=== PATIENT | female | born 1940 | race Caucasian/White ===

== ENCOUNTER → 2018-12-16 | Outpatient (CLI) | payer MEDICARE ==
--- NOTE | 2018-12-16 16:18 | Diagnostic Imaging Report ---
History: Dizziness, headache Comparison studies: None Technique: Sagittal T2; axial DWI, FLAIR, MPGR, T1, Coronal FLAIR. Intravenous contrast: None Findings: Scalp: Normal in signal . No masses . Bone marrow: Normal in signal intensity. Extra-axial: No masses, no fluid collections. Brain sulci: Moderately prominent. Ventricles: Moderately prominent . No hydrocephalus . Parenchyma: Scattered small T-2/flair hyperintensities of the periventricular and deep white matter No masses, hemorrhage, acute or chronic vascular insults. Suprasellar region: No abnormalities. Craniocervical junction: No abnormalities. Patent foramen magnum. No Chiari one malformation. Vessels: Normal flow-voids in the arteries and sinuses. IMPRESSION: 1. No acute abnormalities. 2. Mild chronic microvascular ischemic changes of the white matter. 3. Moderate diffuse volume loss Signed by: DR Justice Huang M.D. on 12/16/2018 4:15 PM
== END ==
LOC: MRI 13:00
PROVIDERS: ATTEND Family Medicine
DX: G44.1 Vascular headache, not elsewhere classified (principal); R27.0 Ataxia, unspecified
CPT/HCPCS: 70551

== ENCOUNTER 2020-05-26 12:20 | Observation (INO) | payer MEDICARE ==
[~2020-05-26] VITALS: Ht 170.2 cm; Wt 72.6 kg
[2020-05-26 13:01] LABS: BASOPHILS % 0.4 % (0.0-1.0); EOSINOPHILS # (AUTO) 0.2 (0.0-0.4); EOSINOPHILS % 2.9 % (0.0-6.0); HEMATOCRIT 46.1 % (34.2-44.1); HEMOGLOBIN 14.9 g/dL (12.0-16.0); LYMPHOCYTES # (AUTO) 1.8 (1.0-3.2); LYMPHOCYTES % 25.8 % (18.0-39.1); MEAN CORPUSCULAR HEMOGLOBIN 27.5 pg (28-32); MEAN CORPUSCULAR HGB CONC 32.3 g/dL (31-35); MEAN CORPUSCULAR VOLUME 85.2 fL (81-99); MONOCYTES # (AUTO) 0.4 (0.2-0.8); MONOCYTES % 5.2 % (4.4-11.3); NEUTROPHILS # (AUTO) 4.6 (2.1-6.9); NEUTROPHILS % 65.3 % (38.7-80.0); PLATELET COUNT 228 x10e3/uL (140-360); RED BLOOD COUNT 5.41 x10e6/uL (3.6-5.1)
[2020-05-26 13:14] LABS: INR 0.9; PROTHROMBIN TIME 12.6 seconds (11.9-14.5)
--- NOTE | 2020-05-26 13:17 | Emergency Department Note ---
History of Present Illnes History of Present Illness Chief Complaint: Hypertension History of Present Illness This is a 79 year old female arrives to the ED with complaints of high blood pressure. Patient states she was sent to the ER by her primary care doctor for high blood pressure and EKG changes. Patient admits to a headache and chest pain. Patient with to being noncompliant with her hypertensive medications. . Chief Complaint Comment Patient sent to the ER from doctor's office for evaluation of high blood pressure. Patient reports that she has not had a visit with her PCP in two years and finally had a visit today where her blood pressure was 205/110. Patient also admits to being forgetful with her medications and states that she went on a 3 day vacation and hasn't taken her blood pressure medications including this morning. Patient also mentioned chest pain intermittantly over the last few days but denies chest pain now. Historian: Patient Arrival Mode: Car Onset (how long ago): second(s) Severity: moderate Onset quality: unable to specify Duration (how long): week(s) Timing of current episode: constant Progression: unchanged Chronicity: new Relieving factors: none Associated symptoms: Reports chest pain, Reports headaches Treatments prior to arrival: none Past Medical/Family History Physician Review I have reviewed the patient's past medical and family history. Any updates have been documented here. Past Medical History Recent Fever: No Clinical Suspicion of Infectio: No New/Unexplained Change in Ment: No Past Medical History: Hypertension, Cancer, Depression Other Medical History: Chronic Fatigue Syndrome Fibromyalgia Past Surgical History: Appendectomy, Hysterectomy, Knee Replacement, Back Surgery Other Surgery: Gastric Tumor Social History Smoking Cessation: Never Smoker Review of Systems Review of Systems Constitutional: Reports as per HPI, Reports weakness EENTM: Reports no symptoms Cardiovascular: Reports as per HPI, Reports chest pain Respiratory: Reports no symptoms Gastrointestinal: Reports no symptoms Genitourinary: Reports no symptoms Musculoskeletal: Reports no symptoms Integumentary: Reports no symptoms Neurological: Reports no symptoms Psychological: Reports no symptoms Endocrine: Reports no symptoms Hematological/Lymphatic: Reports no symptoms Physical Exam Related Data Allergies: Coded Allergies: codeine (Verified Allergy, Unknown, 08/29/09) Triage Vital Signs Vital Signs Date Time Temp Pulse Resp B/P (MAP) Pulse Ox O2 Delivery O2 Flow Rate FiO2 05/26/20 12:25 98.3 77 16 241/105 100 Room Air Vital signs reviewed: Yes Physical Exam CONSTITUTIONAL Constitutional: Present well-developed, Present well-nourished HENT HENT: Present normocephalic, Present atraumatic, Present oropharynx clear/moist, Present nose normal HENT L/R: Present left ext ear normal, Present right ext ear normal EYES Eyes: Reports PERRL, Reports conjunctivae normal NECK Neck: Present ROM normal PULMONARY Pulmonary: Present effort normal, Present breath sounds normal CARDIOVASCULAR Cardiovascular: Present regular rhythm, Present heart sounds normal, Present capillary refill normal, Present normal rate GASTROINTESTINAL Abdominal: Present soft, Present nontender, Present bowel sounds normal GENITOURINARY Genitourinary: Present exam deferred SKIN Skin: Present warm, Present dry MUSCULOSKELETAL Musculoskeletal: Present ROM normal NEUROLOGICAL Neurological: Present alert, Present oriented x 3, Present no gross motor or sensory deficits PSYCHOLOGICAL Psychological: Present mood/affect normal, Present judgement normal Results Laboratory Laboratory Laboratory Tests Test 05/26/20 12:35 Lab results reviewed: Yes Imaging Imaging results reviewed: Yes Procedures 12 Lead ECG Interpretation ECG Interpretation : ECG: ECG 1 Counter Intelligence: Interpreted by ED physician Prior ECG tracings: reviewed Rhythm: sinus rhythm Rate: normal QRS axis: normal T wave elevation: II, III, aVF, V4, V5, V6 Clinical Impression: abnormal ECG Critical Care Time Total Critical Care Time (min): 35 Critical care time exclusive o: separately billable procedures Critcal care necessary due to: cardiac failure Assessment & Plan Medical Decision Making MDM 79-year-old female arrived to the ED with complaints of headache and chest pain. Patient Markert hypertension secondary to medication noncompliance. Patient required emergent intervention with stat CT scan of the brain and medications for blood pressure control. Patient admitted for further workup and management. Given the critical condition in which the patient arrived, the patient was immediately assessed by myself and the nurse, and cardiac monitoring initiated due to the potential for rapid decompensation of the patient's clinical condition. During the course of the patient?s stay, I spent a considerable amount of time at the bedside performing serial re-evaluations of the patient's hemodynamic and clinical status because of the recognized potential threat to life or limb in this condition. I then had a chance to review not only all of the available current laboratory and radiographic studies obtained today, but I also reviewed old records available to me at the time. Additionally, any ancillary information available including edge in[facility] records were reviewed. Seq uential vital signs were obtained. Critical Care time of 35 minutes was performed exclusive of billable procedures Assessment & Plan Final Impression: (1) Hypertensive urgency Depart Disposition: HOME, SELF-CARE Last Vital Signs Date Time Temp Pulse Resp B/P (MAP) Pulse Ox O2 Delivery O2 Flow Rate FiO2 05/26/20 12:25 98.3 77 16 241/105 100 Room Air Home Meds Reported Medications Duloxetine HCl (Duloxetine HCl) 30 Mg Capsule.dr, 30 MG PO DAILY 05/26/20 Clonazepam (CLONAZEPAM) 1 Mg Tablet, 1 MG PO DAILY 05/26/20 Fluoxetine Hcl (FLUOXETINE HCL) 20 Mg Capsule, 20 MG PO DAILY 05/26/20 Amlodipine Besylate (AMLODIPINE BESYLATE) 10 Mg Tablet, 10 MG PO DAILY 05/26/20 Clonidine Hcl (CLONIDINE HCL) 0.1 Mg Tablet, 1 TAB PO PRN PRN for ELEVATED BLOOD PRESSURE 05/26/20 RAUL RODRIGUEZ DO May 26, 2020 13:17
[2020-05-26 13:19] LABS: ALANINE AMINOTRANSFERASE 22 IU/L (0-55); ALBUMIN 4.4 g/dL (3.5-5.0); ALBUMIN/GLOBULIN RATIO 1.3 (0.8-2.0); ALKALINE PHOSPHATASE 93 IU/L (40-150); ANION GAP 14.9 mmol/L (8-16); BLOOD UREA NITROGEN 12 mg/dL (7-26); BUN/CREATININE RATIO 16 (6-25); CALCIUM 9.7 mg/dL (8.4-10.2); CARBON DIOXIDE 25 mmol/L (22-29); CHLORIDE 104 mmol/L (98-107); CREATININE, SERUM 0.74 mg/dL (0.57-1.11); EST GLOMERULAR FILTRATION RATE > 60 ML/MIN (60-); GLUCOSE 89 mg/dL (74-118); POTASSIUM 3.9 mmol/L (3.5-5.1); SODIUM 140 mmol/L (136-145)
[2020-05-26 13:20] LABS: CREATINE KINASE 114 IU/L (29-168)
--- NOTE | 2020-05-26 13:32 | Diagnostic Imaging Report ---
CT BRAIN WO HISTORY: High blood pressure COMPARISON: MRI brain 12/16/2018 Technique: Noncontrast axial scans were obtained from skull base to the vertex. Coronal and sagittal reconstructions obtained from the axial data. One or more of the following dose reduction techniques were used: Automated exposure control, adjustment of the mA and/or kV according to patient size, and/or utilization of iterative reconstruction technique. DISCUSSION: Scalp/Skull: Unremarkable. Brain sulci: Mildly prominent. Ventricles: Compensatory dilatation. Extra-axial spaces: No masses or fluid collections. Carotid siphon calcifications are present. Parenchyma: Mild bilateral deep white matter hypodensity is likely chronic microvascular ischemic change. Otherwise, no masses, hemorrhage, or large vascular territory acute infarct. Dural sinuses: No abnormal densities. Sellar/Suprasellar region: Intact. Skull base: Intact. Incidental findings: None. IMPRESSION: 1. No acute intracranial abnormalities. 2. Mild supratentorial chronic microvascular ischemic change. Generalized cerebral volume loss. Signed by: Dr. Meir Yu M.D. on 05/26/2020 1:29 PM
[2020-05-26] MEDS ORDERED: METOPROLOL TARTRATE INJ 1 MG/ML VIAL IV ONE (14:15)
[2020-05-26] MEDS ORDERED: CLONIDINE HCL 0.2 MG TAB PO ONE (15:00)
[2020-05-26 15:30] LABS: THYROID STIMULATING HORMONE 0.757 uIU/mL (0.350-4.940)
[2020-05-26] MEDS: LOSARTAN POTASSIUM 25 MG TAB PO SCH (16:08)
[2020-05-26] MEDS: HYDROCHLOROTHIAZIDE 25 MG TAB PO SCH (16:08)
[2020-05-26] MEDS ORDERED: FLUOXETINE HCL20 MG PO (16:55)
[2020-05-26] MEDS ORDERED: AMLODIPINE BESY10 MG PO (16:55)
[2020-05-26] MEDS ORDERED: DULOXETINE HCL30 MG PO (16:55)
[2020-05-26] MEDS ORDERED: CLONIDINE HCL0.1 MG PO (16:55)
[2020-05-26] MEDS ORDERED: CLONAZEPAM1 MG PO (16:55)
[2020-05-26] MEDS ORDERED: LOSARTAN POTASSIUM 100 MG TAB PO SCH (17:00)
[2020-05-26 17:06] VITALS: BP 90/50
--- NOTE | 2020-05-26 17:06 | NUR ---
Received patient from ER via stretcher. Respiration even and unlabored without SOB. Denies chest pain. Family member at bedside. Orientated to room and how to use the TV, bed and call light. Patient is advised the importance of using the call light if assistance is needed. verbalized understanding. Call light in reach.
--- NOTE | 2020-05-26 18:37 | History and Physical ---
CHIEF COMPLAINT: The patient is a 79-year-old female, who came into the emergency room was sent by her PCP, Dr. Tirado for hypertensive urgency and headaches. HISTORY OF PRESENTING ILLNESS: This is Ms. Bailee Espana is a 79-year-old female with a history of hypertension with a history of depression and anxiety, was usual state of health until she was called into office that she has not been seen for 2 years and has not been compliant with medication. The patient came in and was found to have blood pressures of 200s/100s. The patient had some headaches and also had some questionable chest pains that started. PAST MEDICAL HISTORY: History of hypertension, history of anxiety. MEDICATIONS: She takes at home. She takes amlodipine 10 mg and also she takes Paxil 20 mg on a regular basis. Otherwise, no medication. SOCIAL HISTORY: No EtOH. No IV drug abuse. No history of smoking either. REVIEW OF SYSTEMS: Negative for shortness of breath. No nausea. No vomiting. No diarrhea. No constipation. No rectal bleeding. Positive for some blurry vision and also for some headache. No diplopia. No paresthesias, no hyperesthesias. PHYSICAL EXAMINATION: VITAL SIGNS: On arrival, blood pressure was 241/105, temperature is 98.3, and room air 100%. HEENT: Normocephalic, atraumatic. The patient is an anxious appearing. CVS: S1, S2 normal. Regular rate and rhythm. ABDOMEN: Soft, nontender, nondistended. EXTREMITIES: No clubbing, no cyanosis and/or no edema. LABORATORY DATA: White count 6.99, hemoglobin 14, hematocrit of 46.1 chemistry shows sodium 140, potassium 3.9, BUN of 12, creatinine 0.74. IMAGING STUDIES: Brain CT was done because of dizziness. Impression was no acute intracranial abnormalities, mild supratentorial chronic microvascular ischemic changes and generalized. ASSESSMENT AND PLAN: This is Ms. Bailee Espana with acute hypertensive emergency. PLAN: 1. The patient has been started on some metoprolol 5 mg once a day. 2. We will start the patient on some losartan 50 mg twice a day and also put her on some diuretic 25 mg once a day. 3. Continue to monitor blood pressures. EKG will be done and also an echocardiogram will be done. 4. Continue to monitor the patient. Further recommendation per clinical course. We will keep the patient in observation until tomorrow, until echocardiogram results are evaluated. MD MARLA Georges/MODL /[id number]
[2020-05-26 20:00] VITALS: BP 107/58
[2020-05-26 21:02] LABS: CREATINE KINASE 69 IU/L (29-168)
[2020-05-26] MEDS ORDERED: CALCIUM CARBONATE 500 MG CHEWABLE TABS PO PRN (21:15)
[2020-05-27] VITALS: BP 142/79
[2020-05-27 04:53] VITALS: BP 149/73
--- NOTE | 2020-05-27 05:32 | NUR ---
PT C/O ACID REFLEX AND GIVEN TUMS .PT RESTING ,CALL LIGHT WITH IN REACH ,CONTINUE TO MONITOR
[2020-05-27 05:46] LABS: BASOPHILS % 0.6 % (0.0-1.0); EOSINOPHILS # (AUTO) 0.2 (0.0-0.4); HEMATOCRIT 37.1 % (34.2-44.1); HEMOGLOBIN 12.1 g/dL (12.0-16.0); LYMPHOCYTES # (AUTO) 1.8 (1.0-3.2); MEAN CORPUSCULAR HEMOGLOBIN 27.6 pg (28-32); MEAN CORPUSCULAR HGB CONC 32.6 g/dL (31-35); MEAN CORPUSCULAR VOLUME 84.7 fL (81-99); MONOCYTES # (AUTO) 0.4 (0.2-0.8); MONOCYTES % 7.3 % (4.4-11.3); NEUTROPHILS # (AUTO) 2.8 (2.1-6.9); NEUTROPHILS % 53.9 % (38.7-80.0); PLATELET COUNT 193 x10e3/uL (140-360); RED BLOOD COUNT 4.38 x10e6/uL (3.6-5.1); RED CELL DISTRIBUTION WIDTH 12.9 % (11.7-14.4)
[2020-05-27 06:09] LABS: ALANINE AMINOTRANSFERASE 16 IU/L (0-55); ALBUMIN 3.3 g/dL (3.5-5.0); ALBUMIN/GLOBULIN RATIO 1.3 (0.8-2.0); ALKALINE PHOSPHATASE 69 IU/L (40-150); ANION GAP 12.8 mmol/L (8-16); BLOOD UREA NITROGEN 19 mg/dL (7-26); BUN/CREATININE RATIO 25 (6-25); CALCIUM 8.8 mg/dL (8.4-10.2); CARBON DIOXIDE 24 mmol/L (22-29); CHLORIDE 106 mmol/L (98-107); CREATININE, SERUM 0.76 mg/dL (0.57-1.11); EST GLOMERULAR FILTRATION RATE > 60 ML/MIN (60-); GLUCOSE 100 mg/dL (74-118); POTASSIUM 3.8 mmol/L (3.5-5.1); SODIUM 139 mmol/L (136-145)
[2020-05-27 06:29] LABS: CREATINE KINASE MB 1.9 ng/mL (0-5.0)
--- NOTE | 2020-05-27 07:04 | Progress Note ---
DATE: SUBJECTIVE: A 79-year-old female, who came in with hypertensive urgency. The patient is doing well. No complaints except for a twinge of chest pain yesterday, which was after 10 o'clock, did not wake her up, but she was awake. No other complaints. No shortness of breath. No nausea, no vomiting, no diarrhea. PHYSICAL EXAMINATION: GENERAL: The patient is less anxious. VITAL SIGNS: Temperature is 98.6, pulse of 68, respirations of 19, blood pressure is 149/73, pulse oximetry of 96% on room air. HEENT: Normocephalic, atraumatic. Pupils are reactive to light and accommodation. CVS: S1, S2 normal. Regular rate and rhythm. ABDOMEN: Soft, nontender, nondistended. EXTREMITIES: No clubbing, no cyanosis, no edema. IMAGING: Echocardiogram to be done. ASSESSMENT AND PLAN: Ms. Bailee Espana with: 1. Hypertensive urgency. The patient is better on the current medication regimen. 2. Chest pains. A Cardiology referral will be done. Echocardiogram has been ordered. The patient can be discharged home today after consultation with Cardiology and if the echo was normal and outpatient workup on chest pain. Continue current medications. Further recommendation per clinical course. Again, discharge probability depending on echo and Cardiology consult. MD MARLA Georges/ALEXISL /[id number]
--- NOTE | 2020-05-27 07:22 | NUR ---
BEDSIDE REPORT GIVEN TO THE ON COMING NURSE
[2020-05-27 08:00] VITALS: BP 145/75
[2020-05-27] MEDS: LOSARTAN POTASSIUM 25 MG TAB PO SCH ×2 (08:26→17:53)
[2020-05-27] MEDS: HYDROCHLOROTHIAZIDE 25 MG TAB PO SCH (08:26)
[2020-05-27 09:06] VITALS: BP 145/75
--- NOTE | 2020-05-27 11:20 | Consultation ---
DATE OF CONSULTATION: Cardiology consult HISTORY OF PRESENT ILLNESS: A 79-year-old female, admitted with a past medical history of hypertension, anxiety and depression, admitted with elevated blood pressure 200s/100s. 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 The patient denies any GI symptoms. No nausea or vomiting. Denies any shortness of breath. The patient reports she has not seen her primary care physician for two years. Her blood pressure has been running in the 160s/100s. However, in the last four days, she missed her medications and she noticed her blood pressure has been running systolic of 180s to 200s. PAST MEDICAL HISTORY: Hypertension, anxiety problems, and depression. FAMILY HISTORY: Mom, diabetes. Dad, hypertension. Mom also had ovarian cancer. Grandparent, mother side, CAD. SOCIAL HISTORY: Nonsmoker. Denies ETOH or illicit drug use. SURGICAL HISTORY: Knee replacement bilateral, back surgery, partial colectomy, and tumor removal. Left heart catheterization 10 years ago came back normal (self-reported). REVIEW OF SYSTEMS: A detailed 12-point review of system was performed and was negative except as noted in HPI above. PHYSICAL EXAMINATION: VITAL SIGNS: Temperature 98.0, heart rate of 68, respirations 20, blood pressure 145/75, and pulse oximetry 100% on room air. GENERAL: The patient is well developed and well nourished, no acute respiratory distress. SKIN: Normal in appearance, texture, and temperature. Warm and dry. No bruising. No skin tears. HEENT: The patient's cranium is normocephalic and atraumatic. Pupils are equally round and reactive to light and accommodation. Sclerae anicteric. Ears are normal. Mucosa is moist. Throat is clear. NECK: Supple. Full range of motion. No cervical lymphadenopathy. No thyromegaly. Carotid artery upstroke is normal bilaterally without bruits. No JVD. RESPIRATORY: Normal respiratory effort. LUNGS: Clear to auscultation bilaterally. No wheezing, no rhonchi. No rales or rubs. CARDIOVASCULAR: S1 and S2 is audible. Regular rate and rhythm. No significant murmurs heard. GI: Soft, nontender, nondistended. Bowel sounds are present. EXTREMITIES: No cyanosis or clubbing. No edema. Pulses are palpable 2+ throughout. NEUROLOGIC: Motor and sensory examination of the upper and lower extremities is normal. Reflexes are normal and symmetrical bilaterally. LABORATORY DATA: Sodium 139, potassium 3.8, creatinine is 0.76, glucose 100, AST 15, ALT 16, and ALK 69. CK-MB 1.90, 1.90. Troponin 0.001, 0.010. CK 69, 66. TSH 0.757, T4 2.0204, thyroxine 6.13, and T3 uptake 32.96. ASSESSMENT: 1. Atypical chest pain. 2. Hypertensive urgency/emergency. 3. History of hypertension. 4. History of anxiety, depression. 5. Noncompliance with medical management. PLAN: 1. Continue telemetry monitoring. Monitor vital signs, tight BP control. 2. Obtain echocardiogram to evaluate valves and LV function. 3. We will arrange for Lexiscan/nuclear stress test today. Further recommendation will follow according to the patient's clinical course. Thank you for this consultation. We will continue to follow. Dictated by Milagros Albarado NP MD OSMEL Ivory/ARTHUR /[id number]
[2020-05-27 12:00] VITALS: BP 152/76
[2020-05-27] MEDS ORDERED: REGADENOSON 0.4 MG/5 ML SYR IV ONE (12:13)
--- NOTE | 2020-05-27 12:20 | NUR ---
Patient is transported for procedure at this time
--- NOTE | 2020-05-27 14:29 | NUR ---
Patient is back to her room from procedure. Respiration even and unlabored without SOB. Denies pain. Call light in reach.
[2020-05-27 16:11] VITALS: BP 166/69
--- NOTE | 2020-05-27 16:33 | Operative Report ---
DATE OF PROCEDURE: 05/27/2020 SURGEON: Michael Escobedo MD PROCEDURE: Lexiscan nuclear stress test. INDICATION: Chest pain. TECHNIQUE: The patient was given 11 mCi of Myoview. Resting images were obtained in the horizontal long axis, vertical long axis, and short axis. The patient was then hooked up to the EKG machine. Lexiscan was infused over 15 seconds. Immediately after Lexiscan infusion, the patient was given 30.1 millicuries of Myoview. Stress images were obtained in the horizontal long axis, vertical long axis, and short axis. Stress images were obtained 30 minutes after Lexiscan infusion. RESULTS: 1. The resting EKG demonstrated normal sinus rhythm with some nonspecific ST and T-wave changes. 2. There were no EKG changes and no symptoms during Lexiscan infusion. 3. There was normal perfusion to all segments of the myocardium in both stress and rest. 4. There was normal left ventricular size and function with an ejection fraction of 73%. CONCLUSION: Normal Lexiscan nuclear stress test. Michael Escobedo MD [facility]/MODL /[id number] cc: Michael Escobedo MD
--- NOTE | 2020-05-27 18:23 | NUR ---
Discharge education provided emphasizing the importance of taking the blood pressure medication and the risks of not taking it. Verbalized understanding. Patient states " now I know the risk, I'll make sure I take them". PIV to left wrist removed, catheter tip intact, no bleeding noted. Accompanied patient to private vehicle with all belongings taken.
== END 2020-05-27 18:23 | disposition home or self-care (01) ==
LOC: ER 12:42 → ERHOLD 13:12 → MED/SURG2 17:16
PROVIDERS: ADMIT Family Medicine; ATTEND Family Medicine
DX: I16.0 Hypertensive urgency (principal); R07.89 Other chest pain; Z91.14 Patient's other noncompliance with medication regimen; Z88.5 Allergy status to narcotic agent; F41.9 Anxiety disorder, unspecified
CPT/HCPCS: 36415 ×2; 70450; 78452; 80053 ×2; 82550 ×2; 82553 ×2; 84436; 84443; 84479; 84484 ×2; 85025 ×2; 85610; 93005; 93017; 93306; 99284; A9502; G0378 ×2; J2785; U0002